=== PATIENT | female | born 1960 | race Caucasian/White ===

== ENCOUNTER 2023-06-12 17:56 | Observation (INO) ==
[2023-06-12] MEDS ORDERED: Lactated Ringers 1000 ml BAG 1,000 ML IV ONE ×2 (18:22→21:10)
[2023-06-12 18:57] LABS: ABS Basophils 0.1 10^3/uL (0.0-0.1); ABS Eosinophils 0.1 10^3/uL (0.0-0.5); ABS Lymphocytes 0.9 10^3/uL (1.0-4.8); ABS Monocytes 0.5 10^3/uL (0.0-0.9); ABS Neutrophils 8.8 10^3/uL (1.5-7.6); ABS Nucleated RBC 0.01 10^3/ul; Eosinophil % 0.9 %; Hematocrit 41.7 % (35-45); Hemoglobin 14.3 g/dL (11.5-14.3); Lymphocyte % 9.1 %; Mean Corpuscular Hemoglobin 30.2 pg (27-33); Mean Corpuscular Hgb Conc 34.4 g/dL (31-36); Mean Corpuscular Volume 87.7 fL (80-97); Mean Platelet Volume 7.6 fL (7.5-11.2); Platelet Count 187 10^3/uL (150-450); Red Blood Count 4.75 10^6/uL (3.63-4.92); Red Cell Distribution Width 13.7 % (12-17); White Blood Count 10.4 10^3/uL (3.8-11.8)
[2023-06-12] MEDS ORDERED: Morphine 4 MG/ML VIAL (1 ml) IV ONE ×2 (19:12→21:10)
[2023-06-12] MEDS ORDERED: Ondansetron 4 mg VIAL 2 MG/ML 2 ml VIAL IV ONE (19:12)
[2023-06-12 19:16] LABS: Albumin 4.3 g/dL (3.2-5.2); Albumin/Globulin Ratio 1.7 (1-3); C Reactive Protein 196.51 mg/L (<8.01); Calcium 9.4 mg/dL (8.6-10.3); Creatinine, Serum 1.12 mg/dL (0.51-0.95); Globulin 2.5 g/dL (2-4); Potassium 3.7 mmol/L (3.5-5.0); Total Bilirubin 1.3 mg/dL (0.2-1.0); Total Protein 6.8 g/dL (6.4-8.9); eGFR CKD-EPI 54.6 (>60)
[2023-06-12] MEDS ORDERED: Iodixanol (CONTRAST) 320 MG/ML 100 ML SDV IV ONE (20:11)
[2023-06-12] MEDS ORDERED: Piperacillin/Tazobac 3.375 BAG 3.375 GM/100 ML BAG IV ONE ×2 (21:01→21:38)
[2023-06-12] MEDS ORDERED: Ondansetron 4 mg VIAL 2 MG/ML 2 ml VIAL IV PRN (21:38)
[2023-06-12] MEDS: D5W 1/2 NS KCl 20 meq 1000 ml 1,000 ML IV SCH (23:43)
[2023-06-13] MEDS: Piperacillin/Tazobac 3.375 BAG 3.375 GM/100 ML BAG IV SCH ×3 (01:49→18:09)
[2023-06-13] MEDS: HYDROmorphone 0.5 MG/0.5 ML SYRINGE IV SLOW PU PRN ×3 (01:56→18:16)
[2023-06-13] MEDS ORDERED: Piperacillin/Tazobac 3.375 BAG 3.375 GM/100 ML BAG IV SCH (02:00)
[2023-06-13] MEDS: Levothyroxine 100 MCG/5 ML VIAL IV SCH (05:48)
[2023-06-13] MEDS: D5W 1/2 NS KCl 20 meq 1000 ml 1,000 ML IV SCH ×2 (05:52→16:57)
[2023-06-13] MEDS ORDERED: Hydrocortisone INJ 100 MG VIAL IV SCH ×3 (06:00→21:00)
[2023-06-13 06:32] LABS: Urine Appearance Cloudy; Urine Bilirubin Negative (Negative); Urine Blood 1+ (Negative); Urine Color Yellow; Urine Glucose Negative (Negative); Urine Ketones Negative (Negative); Urine Nitrite Negative (Negative); Urine Protein 2+(100 mg/dL) (Negative); Urine Specific Gravity 1.059 (1.002-1.030); Urine Urobilinogen Negative (Negative)
[2023-06-13 06:36] LABS: Urine Bacteria 1+ (Absent); Urine Red Blood Cell 3+(>10/hpf) (Absent); Urine Squamous Epithelial Cell Present (Absent); Urine White Blood Cell 3+(>20/hpf) (Absent)
[2023-06-13] MEDS ORDERED: Bupivacaine 0.25% SDV 30 ML ONE (07:52)
[2023-06-13 08:18] LABS: Creatinine, Serum 1.01 mg/dL (0.51-0.95); Potassium 3.4 mmol/L (3.5-5.0); eGFR CKD-EPI 61.8 (>60)
[2023-06-13] MEDS ORDERED: KCL 20 MEQ/100 ML IVPREMIX 20 MEQ/100 ML BAG IV ONE (08:21)
[2023-06-13] MEDS ORDERED: Naloxone 0.4 mg VIAL 0.4 mg/ml 1 ml VIAL IV PRN (09:13)
[2023-06-13] MEDS ORDERED: fentaNYL 100 mcg/2 ml 50 MCG/ML VIAL IV PRN (09:13)
[2023-06-13] MEDS ORDERED: Ondansetron 4 mg VIAL 2 MG/ML 2 ml VIAL IV PRN (09:13)
[2023-06-13] MEDS ORDERED: Midazolam 2 mg/2 ml VIAL 1 mg/ml 2 ml VIAL (2 mg) ONE (09:24)
[2023-06-13] MEDS ORDERED: Ondansetron 4 mg VIAL 2 MG/ML 2 ml VIAL ONE (09:24)
[2023-06-13] MEDS ORDERED: Rocuronium 50 mg VIAL 10 mg/ml 5 ml VIAL (50 mg) ONE (09:24)
[2023-06-13] MEDS ORDERED: Propofol 10 MG/ML 20 ML BTL ONE (09:24)
[2023-06-13] MEDS ORDERED: Lidocaine 2% PF 5 ML VIAL ONE (09:25)
[2023-06-13] MEDS ORDERED: fentaNYL 100 mcg/2 ml 50 MCG/ML VIAL ONE (09:25)
[2023-06-13] MEDS ORDERED: Hydrocortisone INJ 100 MG/2ML 2 ML VIAL ONE (09:41)
[2023-06-13] MEDS ORDERED: Piperacillin/Tazobac 3.375 BAG 3.375 GM/100 ML BAG IV ONE (09:44)
[2023-06-13] MEDS ORDERED: Phenylephrine 40 mcg/mL 10mL (400mcg) SYRINGE ONE (10:11)
[2023-06-13] MEDS: Hydrocortisone INJ 100 MG VIAL IV SCH (21:27)
[2023-06-13] MEDS ORDERED: Hydrocortisone INJ 100 MG/2ML 2 ML VIAL IV ONE (21:53)
[2023-06-14] MEDS: D5W 1/2 NS KCl 20 meq 1000 ml 1,000 ML IV SCH (01:26)
[2023-06-14] MEDS: Piperacillin/Tazobac 3.375 BAG 3.375 GM/100 ML BAG IV SCH ×3 (02:18→17:31)
[2023-06-14 05:54] LABS: ABS Lymphocytes 0.4 10^3/uL (1.0-4.8); ABS Monocytes 0.2 10^3/uL (0.0-0.9); ABS Neutrophils 6.4 10^3/uL (1.5-7.6); Hematocrit 33.7 % (35-45); Hemoglobin 11.6 g/dL (11.5-14.3); Lymphocyte % 5.1 %; Mean Corpuscular Hemoglobin 30.5 pg (27-33); Mean Corpuscular Hgb Conc 34.5 g/dL (31-36); Mean Corpuscular Volume 88.4 fL (80-97); Platelet Count 133 10^3/uL (150-450); Red Blood Count 3.81 10^6/uL (3.63-4.92); Red Cell Distribution Width 13.9 % (12-17)
[2023-06-14] MEDS: Levothyroxine 100 MCG/5 ML VIAL IV SCH (06:21)
[2023-06-14] MEDS: Hydrocortisone INJ 100 MG/2ML 2 ML VIAL IV SCH ×2 (10:23→22:50)
[2023-06-14] MEDS: Hydrocortisone INJ 100 MG VIAL IV SCH (10:31)
[2023-06-14 10:38] LABS: Calcium 8.1 mg/dL (8.6-10.3); Creatinine, Serum 0.92 mg/dL (0.51-0.95); Potassium 4.1 mmol/L (3.5-5.0); eGFR CKD-EPI 69.1 (>60)
[2023-06-15] MEDS: Piperacillin/Tazobac 3.375 BAG 3.375 GM/100 ML BAG IV SCH ×2 (03:02→10:24)
[2023-06-15 10:02] VITALS: BP 160/81
[2023-06-15] MEDS: Hydrocortisone INJ 100 MG/2ML 2 ML VIAL IV SCH (10:25)
== END 2023-06-15 14:20 | disposition home or self-care (01) ==
LOC: ED 17:56 → EDHOLD 17:56 → SSU 22:58
PROVIDERS: ADMIT Surgery; ATTEND Surgery

== ENCOUNTER 2024-07-20 16:37 | Observation (INO) ==
[2024-07-20 17:37] LABS: Activated Partial Thrombo Time 31.9 seconds (26.0-38.0); INR 1.16 (0.85-1.14)
[2024-07-20] MEDS: Lactated Ringers SEPSIS* BAG 2,040 ML IV ONE (17:40)
[2024-07-20 17:49] LABS: Albumin 4.6 g/dL (3.5-5.7); Albumin/Globulin Ratio 2.1 (1-3); C Reactive Protein 37.08 mg/L (<8.01); Calcium 9.6 mg/dL (8.6-10.3); Creatinine, Serum 1.04 mg/dL (0.51-0.95); Globulin 2.2 g/dL (2-4); Potassium 3.7 mmol/L (3.5-5.0); Total Bilirubin 0.7 mg/dL (0.2-1.0); Total Protein 6.8 g/dL (6.4-8.9); eGFR CKD-EPI 59.3 (>60)
[2024-07-20 18:02] LABS: ABS Eosinophils 0.1 10^3/uL (0.0-0.5); ABS Lymphocytes 0.9 10^3/uL (1.0-4.8); ABS Monocytes 0.3 10^3/uL (0.0-0.9); ABS Neutrophils 3.2 10^3/uL (1.5-7.6); ABS Nucleated RBC 0.01 10^3/ul; Eosinophil % 1.9 %; Hematocrit 41.6 % (35-45); Hemoglobin 14.5 g/dL (11.5-14.3); Mean Corpuscular Hemoglobin 30.3 pg (27-33); Mean Corpuscular Hgb Conc 34.9 g/dL (31-36); Mean Corpuscular Volume 86.7 fL (80-97); Mean Platelet Volume 7.8 fL (7.5-11.2); Nucleated Red Blood Cells % 0.1 %/100WBC (0.0-0.8); Platelet Count 154 10^3/uL (150-450); RBC Morphology Normal (Normal); Red Blood Count 4.79 10^6/uL (3.63-4.92); Red Cell Distribution Width 13.3 % (12-17); White Blood Count 4.5 10^3/uL (3.8-11.8)
[2024-07-20] MEDS: Ondansetron 4 mg VIAL 2 MG/ML 2 ml VIAL IV ONE (18:56)
[2024-07-20 19:09] LABS: High Sensitivity Troponin 1 Hr 8 pg/mL (<15)
[2024-07-20 20:34] LABS: Urine Appearance Clear; Urine Bilirubin Negative (Negative); Urine Blood Negative (Negative); Urine Color Yellow; Urine Glucose Negative (Negative); Urine Ketones 1+ (Negative); Urine Nitrite Negative (Negative); Urine Protein Trace (Negative); Urine Specific Gravity 1.022 (1.002-1.030); Urine Urobilinogen Negative (Negative)
[2024-07-20 20:44] LABS: Urine Bacteria Absent /HPF (Absent); Urine Red Blood Cell 1+(3-5/hpf) /HPF (0-Trace); Urine Squamous Epithelial Cell Present /HPF (Absent); Urine White Blood Cell 2+(11-20/hpf) /HPF (0-Trace)
[2024-07-21 06:16] LABS: ABS Lymphocytes 0.8 10^3/uL (1.0-4.8); ABS Monocytes 0.4 10^3/uL (0.0-0.9); ABS Neutrophils 4.1 10^3/uL (1.5-7.6); ABS Nucleated RBC 0.01 10^3/ul; Eosinophil % 0.1 %; Hematocrit 37.4 % (35-45); Hemoglobin 12.9 g/dL (11.5-14.3); Lymphocyte % 14.8 %; Mean Corpuscular Hemoglobin 29.8 pg (27-33); Mean Corpuscular Hgb Conc 34.4 g/dL (31-36); Mean Corpuscular Volume 86.6 fL (80-97); Mean Platelet Volume 8.3 fL (7.5-11.2); Nucleated Red Blood Cells % 0.2 %/100WBC (0.0-0.8); Platelet Count 143 10^3/uL (150-450); Red Blood Count 4.32 10^6/uL (3.63-4.92); Red Cell Distribution Width 13.2 % (12-17); White Blood Count 5.3 10^3/uL (3.8-11.8)
[2024-07-21 06:35] LABS: Calcium 8.4 mg/dL (8.6-10.3); Creatinine, Serum 0.86 mg/dL (0.51-0.95); Magnesium 1.8 mg/dL (1.9-2.7); Potassium 4.1 mmol/L (3.5-5.0); eGFR CKD-EPI 74.5 (>60)
[2024-07-21] MEDS: Enoxaparin 40 MG/0.4 ML SYR SUBCUT SCH (10:48)
[2024-07-21] MEDS: Lactated Ringers 1000 ml BAG 1,000 ML IV SCH (13:00)
[2024-07-21] MEDS: Ondansetron 4 mg VIAL 2 MG/ML 2 ml VIAL IV PRN (20:15)
[2024-07-22 06:51] LABS: ABS Lymphocytes 1.2 10^3/uL (1.0-4.8); ABS Monocytes 0.3 10^3/uL (0.0-0.9); ABS Neutrophils 2.8 10^3/uL (1.5-7.6); ABS Nucleated RBC 0.02 10^3/ul; Eosinophil % 0.2 %; Hematocrit 37.7 % (35-45); Hemoglobin 13.4 g/dL (11.5-14.3); Lymphocyte % 27.4 %; Mean Corpuscular Hemoglobin 30.5 pg (27-33); Mean Corpuscular Hgb Conc 35.5 g/dL (31-36); Mean Platelet Volume 8.4 fL (7.5-11.2); Nucleated Red Blood Cells % 0.4 %/100WBC (0.0-0.8); Platelet Count 143 10^3/uL (150-450); Red Blood Count 4.38 10^6/uL (3.63-4.92); Red Cell Distribution Width 13.2 % (12-17); White Blood Count 4.3 10^3/uL (3.8-11.8)
[2024-07-22 07:06] LABS: Calcium 8.7 mg/dL (8.6-10.3); Creatinine, Serum 0.75 mg/dL (0.51-0.95); Magnesium 1.9 mg/dL (1.9-2.7); Phosphorus 2.9 mg/dL (2.5-5.0); Potassium 3.7 mmol/L (3.5-5.0); eGFR CKD-EPI 87.8 (>60)
[2024-07-22] MEDS: Potassium Chlor 20 meq TAB.ER PO ONE (09:12)
[2024-07-22] MEDS: Lactated Ringers 1000 ml BAG 1,000 ML IV SCH (09:19)
[2024-07-22 10:42] VITALS: BP 107/70
[2024-07-22] MEDS: Ondansetron 4 mg VIAL 2 MG/ML 2 ml VIAL IV ONE (12:13)
== END 2024-07-22 14:10 | disposition home or self-care (01) ==
LOC: ED 16:37 → EDHOLD 16:37 → MED 07-21 01:36
PROVIDERS: ADMIT Internal Medicine; ATTEND Internal Medicine